=== PATIENT | female | born 1975 | race Caucasian/White ===

== ENCOUNTER 2018-01-14 08:11 | Emergency (ER) ==
[2018-01-14 08:21] VITALS: BP 164/83; TEMP 97.7; BMI 21.9
--- NOTE | 2018-01-14 08:54 | ED.PDOC ---
General ED Provider: Dr. DASH CAMPA Chief Complaint: Chest Pain Stated Complaint: Complains of upper abdominal pressure discomfort with excessive belching. Onset last evening. States variable includes eatting at [email or web address] establishment for lunch yesterday -lentil soup. Occasionally experiences sharp pain. Denies Pain in chest, neck, shoulder or posterior chest. Denies Nausea, vomiting or diarrhea. Took TUMS tablet this AM without improvement. Had normal BM this AM which caused increased in pressure. NO CHANGE in SYMPTOMS after BM. Denies significant past medical history or illness. Time Seen by Physician: 08:45 Mode of Arrival: Walk-In Information Source: Patient, Family Exam Limitations: No limitations Nursing and Triage Documentation Reviewed and Agree: Yes Reviewed sepsis parameters & appropriate labs ordered?: Yes System Inflammatory Response Syndrome: Not Applicable Sepsis Protocol: For patient's 13 years and over: Temp is 96.8 and below OR 101 and greater Pulse >90 BPM Resp >20/minute Acutely Altered Mental Status Are patient's symptoms suggestive of a new infection, such as: -Pneumonia -Skin, Soft Tissue -Endocarditis -UTI -Bone, Joint Infection -Implantable Device -Acute Abdominal Infection -Wound Infection -Meningitis -Blood Stream Catheter Infection -Unknown System Inflammatory Response Syndrome: Not Applicable GI Complaint Exam - Abdominal Pain Complaint/Exam Onset: Sudden Duration: 12 hrs Symptoms Are: Still present Timing: Constant Initial Severity: Moderate Current Severity: Moderate Location of Pain: Epigastric Radiates To: Reports: Chest. Denies: Back, Flank, LLQ, RLQ Character: Reports: Sharp, Dull, Colicky (Pressure) Aggravating: Reports: None Alleviating: Reports: None Associated Signs and Symptoms: Reports: Decreased appetite. Denies: Diaphoresis , Dysuria, Decreased urine output AAA Risk Factors: Reports: None Cardiac Risk Factors: Reports: None Surgical Obstruction Risk Factors: Reports: None Related Surgical History: Reports: None Abdominal Findings: Present: Abdominal distention. Absent: Rebound tenderness, Peritoneal signs, McBurney's Point tender, CVA Tenderness Differential Diagnoses: Bowel Obstruction, Other (GERD, Eructation/ Food intolerance) Review of Systems - Review Of Systems Constitutional: Reports: No symptoms Eyes: Reports: No symptoms Ears, Nose, Mouth, Throat: Reports: No symptoms Respiratory: Reports: No symptoms Cardiac: Reports: No symptoms GI: Reports: Abdomen distended : Reports: No symptoms Musculoskeletal: Reports: No symptoms Skin: Reports: No symptoms Neurological: Reports: No symptoms Endocrine: Reports: No symptoms Hematologic/Lymphatic: Reports: No symptoms All Other Systems: Reviewed and Negative Past Medical History - Past Medical History Previously Healthy: Yes Endocrine: Reports: None Cardiovascular: Reports: None Respiratory: Reports: None Hematological: Reports: None Gastrointestinal: Reports: None Genitourinary: Reports: None Neuro/Psych: Reports: None Musculoskeletal: Reports: None Cancer: Reports: None Last Menstrual Period: 01/10/18 - Surgical History General Surgical History: Reports: None - Family History Family History: Reports: None - Social History Smoking Status: Former smoker Hx Substance Use: Yes (Occasional Marijuana use) Alcohol Screening: Occasionally Lives: With family Physical Exam - Physical Exam Appearance: Well-appearing, No pain distress, Well-nourished Eyes: ADRIENNE, EOMI, Conjunctiva clear ENT: Ears normal, Nose normal, Oropharynx normal Respiratory: Airway patent, Breath sounds clear, Breath sounds equal, Respirations nonlabored Cardiovascular: RRR, Pulses normal, No rub, No murmur GI/: Soft, No masses, No Organomegaly, Tender, Bowel sounds hyperactive Musculoskeletal: Normal strength, ROM intact, No edema, No calf tenderness Skin: Warm, Dry, Normal color Neurological: Sensation intact, Motor intact, Reflexes intact, Cranial nerves intact, Alert, Oriented Psychiatric: Affect appropriate, Mood appropriate Re-Evaluation - Re-Evaluation Time of Re-Evaluation: 09:50 Status: Improved Vital Signs Stable: Yes Appearance: NAD Lungs: Clear Skin: Warm and Dry Neuro: Alert and Oriented X3 CV: RRR Additional Comments: GI Symptoms resolved after GI cocktail administered Critical Care Note - Critical Care Note Total Time (mins): 0 Course - Course Hematology/Chemistry: 01/14/18 09:10 01/14/18 09:10 Orders, Labs, Meds: Lab Review 01/14/18 01/14/18 09:10 09:10 WBC 4.59 L RBC 4.34 Hgb 13.3 Hct 40.3 MCV 92.9 MCH 30.6 MCHC 33.0 RDW Coeff of Eulalio 12.0 Plt Count 236 Immature Gran % (Auto) 0.2 Neut % (Auto) 58.8 Lymph % (Auto) 30.3 [place] % (Auto) 8.7 Eos % (Auto) 1.1 Baso % (Auto) 0.9 Immature Gran # (Auto) 0.0 Neut # (Auto) 2.7 Lymph # (Auto) 1.4 [place] # (Auto) 0.4 Eos # (Auto) 0.1 Baso # (Auto) 0.0 Sodium 142 Potassium 4.0 Chloride 108 H Carbon Dioxide 25 Anion Gap 13.0 BUN 12 Creatinine 0.71 Estimated GFR (MDRD) 91.00 BUN/Creatinine Ratio 16.90 Glucose 78 Calcium 9.8 Total Bilirubin 0.6 AST 18 ALT 19 Alkaline Phosphatase 50 Troponin I < 0.0100 Total Protein 6.8 Albumin 3.6 Globulin 3.2 Albumin/Globulin Ratio 1.13 Orders Category Date Time Status EKG-(ED ONLY) Stat CARDIO 01/14/18 08:56 Completed IV [ED IV/MEDIPORT/POWERPORT] .ONCE EMERGENCY 01/14/18 08:56 Active CBC W/ AUTO DIFF Stat LAB 01/14/18 09:10 Completed CMP [COMPREHENSIVE METABOLIC PANEL] Stat LAB 01/14/18 09:10 Completed TROPONIN I Stat LAB 01/14/18 09:10 Completed 0.9 % Sodium Chloride [Saline Flush] MEDS 01/14/18 08:57 Active 1 syr IVF PRN PRN Mag-Al Plus//Lidocaine [Gi Cocktail] MEDS 01/14/18 09:00 Discontinued 30 ml PO ONCE STA ABDOMEN, SERIES FLAT & UPRIGHT Stat RADS 01/14/18 08:56 Completed CHEST, 2 VIEWS PA & LAT Stat RADS 01/14/18 08:56 Completed Medications Generic Name Dose Route Start Last Admin Trade Name Freq PRN Reason Stop Dose Admin Sodium Chloride 1 syr 01/14/18 08:57 Saline Flush IVF PRN PRN To flush IV Discontinued Medications Generic Name Dose Route Start Last Admin Trade Name Freq PRN Reason Stop Dose Admin Al Hydroxide/Mg Hydroxide 30 ml 01/14/18 09:00 01/14/18 09:17 Gi Cocktail PO 01/14/18 09:01 30 ml ONCE STA Administration Vital Signs: Temp Pulse Resp BP Pulse Ox 01/14/18 08:12 97.7 F 61 20 164/83 H 97 Departure - Departure Time of Disposition: 10:10 Disposition: HOME SELF-CARE Discharge Problem: Gastric reflux, Eructation Instructions: Gastritis (ED), Gas and Bloating (ED) Condition: Good Pt referred to PMD for follow-up: Yes (as needed with PCP of choice) IPMP verified?: No Additional Instructions: Remain on clear liquid diet today then advance per tolerance Take Mylanta 10 15 ml after meals and as needed for indigestion or GI Gas Discussed results of diagnostic testing and EKG Seek assistance of a Prim Care Physician for follow up care as needed. Have BP monitored periodically to assure remains normal Allergies/Adverse Reactions: Allergies codeine Adverse Reaction (Verified 01/14/18 08:20) Home Medications: Ambulatory Orders 1 [No Reported Medications] 01/14/18 Disposition Discussed With: Patient
[2018-01-14] MEDS ORDERED: GI COCKTAIL PO STA (09:00)
--- NOTE | 2018-01-14 09:46 | DI ---
EXAM: CHEST FRONTAL AND LATERAL VIEWS HISTORY: Upper abdominal pain. COMPARISON: None FINDINGS: Heart size and mediastinal contour within normal limits. There are scattered calcificat ions suggesting old granulomatous disease. No acute infiltrates are seen. No vascular congestion. There is no consolidation, visible pleural fluid or pneumothorax. Bones reveal no acute fracture. No gas is seen under the hemidiaphragms on this upright study. IMPRESSION: No acute cardiopulmonary process.
--- NOTE | 2018-01-14 09:48 | DI ---
EXAM: KUB upright, KUB supine. HISTORY: Abdominal pain. FINDINGS: Bowel gas pattern is within normal limits. No excessive fecal retention. There is no aris dence of pneumoperitoneum. Organ shadows are within normal limits. No suspicious calcifications. IMPRESSION: Within normal limits.
== END 2018-01-14 10:24 | disposition home or self-care (01) ==
LOC: ED 08:11
DX: K21.9 Gastro-esophageal reflux disease without esophagitis (principal); R14.2 Eructation
CPT/HCPCS: 36415; 80053; 84484; 85025; 93005; 93010; 99283